=== PATIENT | male | born 1980 | race Caucasian/White ===

== ENCOUNTER 2021-04-25 18:32 | Emergency (ER) | payer OTHER ==
[~2021-04-25] VITALS: Ht 182.9 cm; Wt 97.5 kg
[2021-04-25] MEDS ORDERED: LISINOPRIL (18:39)
[2021-04-25] MEDS ORDERED: LIPITOR (18:39)
[2021-04-25] MEDS ORDERED: LABETALOL (18:39)
--- NOTE | 2021-04-25 20:25 | NUR ---
PT AMBULATED TO ER WITH C/O TOOTHACHE/DENTAL PAIN X1 WEEK.
--- NOTE | 2021-04-25 20:38 | NUR ---
DR. PUGH AT BEDSIDE,MSE IN PROGRESS.
--- NOTE | 2021-04-25 21:30 | NUR ---
Patient discharged to home in stable condition. Written and verbal after care instructions given. Patient verbalizes understanding of instructions. Stressed follow up or return to ER for worsening s/s. A/O X4, denies any pain/discomfort. Steady gait.
[2021-04-25 22:14] VITALS: BP 112/79
== END 2021-04-25 21:40 | disposition home or self-care (01) ==
LOC: ER 18:32
DX: K13.79 Other lesions of oral mucosa (principal); R68.84 Jaw pain
CPT/HCPCS: A4663